=== PATIENT | male | born 1975 | race Two or more races ===

== ENCOUNTER 2019-08-17 07:57 | Day surgery (SDC) | payer BC ==
[~2019-08-17 07:57] MED LIST: Cefuroxime 10 MG/ML SYRINGE EYERT SCH; Lidocaine 1% PF 2 ML SDV INJECT SCH; Pilocarpine 4% Ophth Soln 15 ML Bot EYERT SCH; Tetracaine HCl/PF 0.5% 4 ML Bottle EYERT SCH
--- NOTE | 2019-08-17 08:33 | PCM.PREANE ---
Preanesthetic Assessment - Anesthesia/Transfusion/Family Hx Anesthesia History: No Prior Anesthesia Family History of Anesthesia Reaction: No Transfusion History: No Prior Transfusion(s) Intubation History: Unknown - Review of Systems General: No Symptoms Pulmonary: No Symptoms (ETOH socially) Cardiovascular: No Symptoms (HTN) Gastrointestinal: No Symptoms Neurological: No Symptoms, Numbness (diabetic neuropathy bilateral feet) Other: Reports: None, Diabetes - Physical Assessment NPO Status Date: 08/16/19 NPO Status Time: 23:00 Vital Signs: HR:87 BP:126/89 Resp:16 Sat:92% Temp:98 Height: 1.68 m Weight: 95.254 kg ASA Class: 2 Mental Status: Alert & Oriented x3 Airway Class: Mallampati = 2 Dentition: Reports: Normal Dentition, Caries Thyro-Mental Finger Breadths: 3 Mouth Opening Finger Breadths: 3 ROM/Head Extension: Full Lungs: Clear to Auscultation, Normal Respiratory Effort Cardiovascular: Regular Rate, Regular Rhythm, No Murmurs - Allergies Allergies/Adverse Reactions: Allergies Allergy/AdvReac Type Severity Reaction Status Date / Time No Known Allergies Allergy Verified 08/15/19 12:21 - Anesthesia Plan Pre-Op Medication Ordered: None - Acknowledgements Anesthesia Type Planned: MAC Pt an Appropriate Candidate for the Planned Anesthesia: Yes Alternatives and Risks of Anesthesia Discussed w Pt/Guardian: Yes Pt/Guardian Understands and Agrees with Anesthesia Plan: Yes PreAnesthesia Questionnaire - HOME MEDS Home Medications: Home Meds Gabapentin [Neurontin] 200 mg PO DAILY 08/15/19 [History] metFORMIN HCl [Metformin HCl] 1,000 mg PO BID 08/15/19 [History] - CURRENT (IN HOUSE) MEDS Current Meds: Current Medications Brimonidine Tartrate (Alphagan 0.2% Ophth Soln) 0 ml EYERT ASDIRECTED DAYAN Stop: 08/17/19 23:00 Cefuroxime Sodium (Zinacef) 0 mg EYERT ASDIRECTED DAYAN Stop: 08/17/19 23:00 Lidocaine HCl (Xylocaine-Mpf 1%) 1 ml INJECT ASDIRECTED DAYAN Stop: 08/17/19 23:00 Phenylephrine HCl (Sergio-Synephrine 2.5% Oph Soln) 0 ml EYERT ASDIRECTED DAYAN Stop: 08/17/19 23:00 Pilocarpine HCl (Pilocar 4% Ophth Soln) 0 ml EYERT ASDIRECTED DAYAN Stop: 08/17/19 23:00 Polymyxin/Trimethoprim Sulfate (Polytrim Ophth Soln) 0 ml EYERT ASDIRECTED DAYAN Stop: 08/17/19 23:00 Tropicamide (Mydriacyl 1% Ophth Soln) 0 ml EYERT ASDIRECTED DAYAN Stop: 08/17/19 23:00 Discontinued Medications Tetracaine HCl (Tetracaine 0.5% Steri-Unit Kaylee) 0 ml EYERT ASDIRECTED DAYAN Stop: 08/17/19 07:01
[2019-08-17] MEDS: Polymyxin B/Trimethoprim 10 ML Bottle EYERT SCH ×3 (08:59→10:36)
[2019-08-17] MEDS: Brimonidine 0.2% Ophth Soln 5 ML Bottle EYERT SCH ×3 (09:05→10:36)
[2019-08-17] MEDS: Phenylephrine 2.5% Ophth Soln 2 ML Bot EYERT SCH ×5 (09:10→10:16)
[2019-08-17] MEDS: Tropicamide 1% Ophth Soln 15 ML Bottle EYERT SCH ×4 (09:15→09:59)
[2019-08-17] MEDS: Tetracaine HCl/PF 0.5% 4 ML Bottle EYERT SCH ×2 (10:11→10:25)
--- NOTE | 2019-08-17 10:37 | PCM48HPAN ---
Post Anesthesia Note - EVALUATION WITHIN 48HRS OF ANESTHETIC Vital Signs in Normal Range: Yes Patient Participated in Evaluation: Yes Respiratory Function Stable: Yes Airway Patent: Yes Cardiovascular Function Stable: Yes Hydration Status Stable: Yes Pain Control Satisfactory: Yes Nausea and Vomiting Control Satisfactory: Yes Mental Status Recovered: Yes Vital Signs: Last Vital Signs Temp 36.7 C 08/17/19 08:15 Pulse 87 08/17/19 08:15 Resp 16 08/17/19 08:15 BP 126/89 08/17/19 08:15 Pulse Ox 92 L 08/17/19 08:15
== END 2019-08-17 10:52 | disposition home or self-care (01) ==
LOC: JD.SDS 07:57
PROVIDERS: ATTEND Ophthalmology
DX: E11.36 Type 2 diabetes mellitus with diabetic cataract (principal); H25.813 Combined forms of age-related cataract, bilateral; H21.81 Floppy iris syndrome; E11.3393 Type 2 diabetes mellitus with moderate nonproliferative diabetic retinopathy without macular edema, bilateral; E11.40 Type 2 diabetes mellitus with diabetic neuropathy, unspecified; I10 Essential (primary) hypertension; Z79.84 Long term (current) use of oral hypoglycemic drugs
CPT/HCPCS: 66984; 82962; J0697; J2001; C1780

== ENCOUNTER 2019-09-14 08:14 | Day surgery (SDC) | payer BC ==
[~2019-09-14 08:14] MED LIST changes: +Cefuroxime 10 MG/ML SYRINGE EYELF SCH; -Cefuroxime 10 MG/ML SYRINGE EYERT SCH; +Pilocarpine 4% Ophth Soln 15 ML Bot EYELF SCH; -Pilocarpine 4% Ophth Soln 15 ML Bot EYERT SCH; -Tetracaine HCl/PF 0.5% 4 ML Bottle EYERT SCH
[2019-09-14] MEDS: Polymyxin B/Trimethoprim 10 ML Bottle EYELF SCH ×3 (08:52→10:38)
[2019-09-14] MEDS: Brimonidine 0.2% Ophth Soln 5 ML Bottle EYELF SCH ×3 (08:57→10:38)
[2019-09-14] MEDS: Phenylephrine 2.5% Ophth Soln 2 ML Bot EYELF SCH ×5 (09:02→10:21)
[2019-09-14] MEDS: Tropicamide 1% Ophth Soln 15 ML Bottle EYELF SCH ×4 (09:08→09:56)
--- NOTE | 2019-09-14 09:14 | PCM.PREANE ---
Preanesthetic Assessment - Procedure Proposed Procedure: cataract - Anesthesia/Transfusion/Family Hx Anesthesia History: No Prior Anesthesia Family History of Anesthesia Reaction: No Transfusion History: No Prior Transfusion(s) Intubation History: Unknown - Review of Systems General: No Symptoms Pulmonary: No Symptoms Cardiovascular: No Symptoms Gastrointestinal: No Symptoms Neurological: No Symptoms Other: Reports: Diabetes - Physical Assessment NPO Status Date: 09/13/19 NPO Status Time: 22:30 Vital Signs: Last Vital Signs Temp 97.9 F 09/14/19 08:41 Pulse 93 09/14/19 08:41 Resp 16 09/14/19 08:41 BP 131/97 H 09/14/19 08:41 Pulse Ox 95 09/14/19 08:41 Height: 5 ft 5 in Weight: 98.883 kg ASA Class: 2 Mental Status: Alert & Oriented x3 Airway Class: Mallampati = 1 Dentition: Reports: Normal Dentition Thyro-Mental Finger Breadths: 3 Mouth Opening Finger Breadths: 3 ROM/Head Extension: Full Cardiovascular: Regular Rate, Regular Rhythm - Allergies Allergies/Adverse Reactions: Allergies Allergy/AdvReac Type Severity Reaction Status Date / Time No Known Allergies Allergy Verified 08/15/19 12:21 - Blood Blood Available: No - Acknowledgements Anesthesia Type Planned: MAC Pt an Appropriate Candidate for the Planned Anesthesia: Yes Alternatives and Risks of Anesthesia Discussed w Pt/Guardian: Yes Pt/Guardian Understands and Agrees with Anesthesia Plan: Yes PreAnesthesia Questionnaire Cardiovascular History: Reports: Hypertension Respiratory History: Reports: None Neurological History: Reports: Neuropathy, Peripheral - SUBSTANCE USE Smoking Status *Q: Never Smoker Tobacco Use Within Last Twelve Months: No Second Hand Smoke Exposure: No Days Per Week of Alcohol Use: 1 Recreational Drug Use History: No - HOME MEDS Home Medications: Home Meds Gabapentin [Neurontin] 200 mg PO DAILY 08/15/19 [History] metFORMIN HCl [Metformin HCl] 1,000 mg PO BID 08/15/19 [History] - CURRENT (IN HOUSE) MEDS Current Meds: Current Medications Brimonidine Tartrate (Alphagan 0.2% Ophth Soln) 0 ml EYELF ASDIRECTED DAYAN Stop: 09/14/19 23:00 Last Admin: 09/14/19 08:57 Dose: 1 drop Cefuroxime Sodium (Zinacef) 0 mg EYELF ASDIRECTED DAYAN Stop: 09/14/19 23:00 Lidocaine HCl (Xylocaine-Mpf 1%) 1 ml INJECT ASDIRECTED DAYAN Stop: 09/14/19 23:00 Phenylephrine HCl (Sergio-Synephrine 2.5% Ophth Soln) 0 ml EYELF ASDIRECTED DAYAN Stop: 09/14/19 23:00 Last Admin: 09/14/19 09:02 Dose: 1 drop Pilocarpine HCl (Pilocar 4% Ophth Soln) 0 ml EYELF ASDIRECTED DAYAN Stop: 09/14/19 23:00 Polymyxin/Trimethoprim Sulfate (Polytrim Ophth Soln) 0 ml EYELF ASDIRECTED DAYAN Stop: 09/14/19 23:00 Last Admin: 09/14/19 08:52 Dose: 1 drop Tetracaine HCl (Tetracaine 0.5% Steri-Unit Kaylee) 0 ml EYELF ASDIRECTED DAYAN Stop: 09/14/19 23:00 Tropicamide (Mydriacyl 1% Ophth Soln) 0 ml EYELF ASDIRECTED DAYAN Stop: 09/14/19 23:00
[2019-09-14] MEDS: Tetracaine HCl/PF 0.5% 4 ML Bottle EYELF SCH ×2 (10:00→10:28)
--- NOTE | 2019-09-14 13:32 | PCM48HPAN ---
Post Anesthesia Note - EVALUATION WITHIN 48HRS OF ANESTHETIC Vital Signs in Normal Range: Yes Patient Participated in Evaluation: Yes Respiratory Function Stable: Yes Airway Patent: Yes Cardiovascular Function Stable: Yes Hydration Status Stable: Yes Pain Control Satisfactory: Yes Nausea and Vomiting Control Satisfactory: Yes Mental Status Recovered: Yes Vital Signs: Last Vital Signs Temp 36.8 C 09/14/19 10:41 Pulse 81 09/14/19 10:41 Resp 18 09/14/19 10:41 BP 149/90 H 09/14/19 10:41 Pulse Ox 93 L 09/14/19 10:41
== END 2019-09-14 10:51 | disposition home or self-care (01) ==
LOC: JD.SDS 08:14
PROVIDERS: ATTEND Ophthalmology
DX: E11.36 Type 2 diabetes mellitus with diabetic cataract (principal); H25.812 Combined forms of age-related cataract, left eye; H21.81 Floppy iris syndrome; H35.033 Hypertensive retinopathy, bilateral; H02.834 Dermatochalasis of left upper eyelid; H02.831 Dermatochalasis of right upper eyelid; H52.31 Anisometropia; I10 Essential (primary) hypertension; E11.42 Type 2 diabetes mellitus with diabetic polyneuropathy; Z98.41 Cataract extraction status, right eye; Z96.1 Presence of intraocular lens; Z79.84 Long term (current) use of oral hypoglycemic drugs
CPT/HCPCS: 66984; J0697; J2001; C1780